=== PATIENT | male | born 1995 | race Caucasian/White ===

== ENCOUNTER 2021-06-21 12:39 | Emergency (ER) | payer SELFPAY ==
[2021-06-21] MEDS ORDERED: Lidocaine 1% w/Epinephrine 1:100K 20 ML VIAL ONE (12:58)
[2021-06-21] MEDS ORDERED: Bacitracin 1 PK ONE (12:58)
== END 2021-06-21 13:20 | disposition home or self-care (01) ==
LOC: BURERS 12:39
DX: S71.111A Laceration without foreign body, right thigh, initial encounter (principal); L03.111 Cellulitis of right axilla; L03.115 Cellulitis of right lower limb; F17.210 Nicotine dependence, cigarettes, uncomplicated; W26.8XXA Contact with other sharp object(s), not elsewhere classified, initial encounter

== ENCOUNTER 2021-09-21 23:05 | Emergency (ER) | payer SELFPAY ==
[2021-09-21] MEDS ORDERED: Clindamycin 150 MG CAP ONE (23:31)
[2021-09-21] MEDS ORDERED: Ibuprofen 800 MG TAB ONE (23:31)
== END 2021-09-21 23:40 | disposition home or self-care (01) ==
LOC: BURERS 23:05
DX: L73.2 Hidradenitis suppurativa (principal); L02.412 Cutaneous abscess of left axilla; F17.210 Nicotine dependence, cigarettes, uncomplicated
CPT/HCPCS: 99282

== ENCOUNTER 2021-12-24 17:54 | Emergency (ER) | payer SELFPAY ==
[2021-12-24] MEDS ORDERED: Sulfameth/Trimethoprim DS 800-160mg TAB ONE (18:13)
[2021-12-24] MEDS ORDERED: Cephalexin 250 MG CAP ONE (18:13)
[2021-12-24] MEDS ORDERED: Ketorolac Tromethamine 60 MG/2 ML VIAL ONE (18:13)
== END 2021-12-24 18:24 | disposition home or self-care (01) ==
LOC: BURERS 17:54
DX: L03.111 Cellulitis of right axilla (principal); F17.210 Nicotine dependence, cigarettes, uncomplicated
CPT/HCPCS: 96372; 99283; J1885

== ENCOUNTER 2023-03-21 16:14 | Emergency (ER) | payer SELFPAY | END 2023-03-21 16:38 | disposition home or self-care (01) | LOC: BURERS 16:14 | DX: L02.412 Cutaneous abscess of left axilla (principal); L02.411 Cutaneous abscess of right axilla; F17.210 Nicotine dependence, cigarettes, uncomplicated | CPT/HCPCS: 99283 ==

== ENCOUNTER 2023-08-08 13:56 | Emergency (ER) | payer SELFPAY ==
[2023-08-08] MEDS ORDERED: Benzonatate 100 MG CAP ONE (14:20)
[2023-08-08] MEDS ORDERED: Ipratropium/Albuterol 3 ML NEB ONE (14:20)
[2023-08-08] MEDS ORDERED: Dexamethasone 10 MG/ML VIAL ONE (14:38)
== END 2023-08-08 15:03 | disposition home or self-care (01) ==
LOC: BURERS 13:56
DX: J20.9 Acute bronchitis, unspecified (principal); F17.210 Nicotine dependence, cigarettes, uncomplicated
CPT/HCPCS: 71046; 96372; J1100; J7620

== ENCOUNTER 2024-02-19 19:07 | Emergency (ER) | payer SELFPAY ==
[2024-02-19] MEDS ORDERED: Clindamycin 150 MG CAP ONE (19:36)
[2024-02-19] MEDS ORDERED: predniSONE 20 MG TAB ONE (19:36)
== END 2024-02-19 19:46 | disposition home or self-care (01) ==
LOC: BURERS 19:07
DX: L73.2 Hidradenitis suppurativa (principal); F17.210 Nicotine dependence, cigarettes, uncomplicated
CPT/HCPCS: 99283; J7512